=== PATIENT | female | born 1965 | race Caucasian/White ===

== ENCOUNTER → 2016-09-15 | Outpatient (CLI) | payer BC ==
[2016-09-15 19:25] LABS: ALT/SGPT 25 U/L (12-78); AST/SGOT 17 U/L (15-37); BLOOD UREA NITROGEN 13 mg/dl (7-18); BUN/CREATININE RATIO 13.2 (10-20); CALCIUM 8.6 mg/dl (8.5-10.1); CARBON DIOXIDE 28 mmol/L (21-32); CHLORIDE 107 mmol/L (98-107); GLUCOSE 120 mg/dl (70-99); SODIUM 143 mmol/L (136-145)
[2016-09-15 19:37] LABS: ALB/GLOB RATIO 0.9 (0.9-2); ALKALINE PHOSPHATASE 75 U/L (45-117)
[2016-09-16 06:38] LABS: ESTIMATED AVERAGE GLUCOSE 123 mg/dl; HA1C FLAG Normal (Normal)
--- NOTE | 2016-09-19 11:39 | CODING QUERY MEDICAL NECESSITY ---
SUPPORTING DIAGNOSIS NEEDED Dr. Rain, A supporting diagnosis is required for the test/procedure performed on this patient in order for us to be reimbursed by the patient's insurance. Please provide a supporting diagnosis for the following test/procedure listed below next to the test name along with your signature. *If there is no additional diagnosis for this patient that would support the following test/procedure please document that below next to the test/procedure. Test(s)/Procedure(s) that require a supporting diagnosis: * ([id number]) VITAMIN D ASSAY DIAGNOSIS: * [id number] GLYCATED HEMOGLOBIN DIAGNOSIS: DATE OF SERVICE: 09/15/16 Provider Signature: Date: Thank you Chandan Tay [facility] Information Management Once completed, please kindly fax back to [phone] For questions please call [phone]
== END | disposition home or self-care (01) ==
LOC: C.LABSPEC 15:48
PROVIDERS: ATTEND Family Medicine
DX: R42 Dizziness and giddiness (principal); N95.1 Menopausal and female climacteric states

== ENCOUNTER → 2017-04-20 | Outpatient (CLI) | payer BC ==
[2017-04-20 18:59] LABS: BASO % 1.1 %; BASO ABS # 0.08 K/uL (0-0.2); EOS % 1.5 %; EOS ABS # 0.11 K/uL (0-0.5); HEMATOCRIT 43.5 % (37-47); HEMOGLOBIN 14.5 g/dL (12.0-16.0); IG# 0.01 K/uL (0.00-0.02); LYMPH % 32.5 %; LYMPH ABS # 2.45 K/uL (1.2-3.4); MEAN CELL VOLUME 87.3 fL (80-100); MEAN CORPUSCULAR HEMOGLOBIN 29.1 pg (25-34); MEAN CORPUSCULAR HGB CONC 33.3 g/dl (32-36); MEAN PLATELET VOLUME 10.2 fL (7.4-10.4); MONO % 9.5 %; MONO ABS # 0.72 K/uL (0.11-0.59); NEUT % 55.3 %; NEUT ABS # 4.17 K/uL (1.4-6.5); PLATELET COUNT 352 K/uL (130-400); RED CELL DISTRIBUTION WIDTH CV 14.2 % (11.5-14.5); RED CELL DISTRIBUTION WIDTH SD 45.3 fL (36.4-46.3); WHITE BLOOD COUNT 7.54 K/uL (4.8-10.8)
[2017-04-20 19:07] LABS: ALBUMIN 3.6 gm/dl (3.4-5.0); ALT/SGPT 23 U/L (12-78); AST/SGOT 13 U/L (15-37); BLOOD UREA NITROGEN 16 mg/dl (7-18); CALCIUM 8.7 mg/dl (8.5-10.1); CARBON DIOXIDE 25 mmol/L (21-32); CREATININE 0.86 mg/dl (0.60-1.20); GLUCOSE 84 mg/dl (70-99); POTASSIUM 4.3 mmol/L (3.5-5.1); SODIUM 137 mmol/L (136-145)
[2017-04-20 19:09] LABS: ALKALINE PHOSPHATASE 67 U/L (45-117); CHOLESTEROL 133 mg/dl (0-200); LDL CHOLESTEROL CALCULATED 60 mg/dl; TOTAL PROTEIN 7.4 gm/dl (6.4-8.2)
== END | disposition home or self-care (01) ==
LOC: C.LABSPEC 18:22
PROVIDERS: ATTEND Family Medicine
DX: K21.9 Gastro-esophageal reflux disease without esophagitis (principal); F41.1 Generalized anxiety disorder; Z68.42 Body mass index [BMI] 45.0-49.9, adult

== ENCOUNTER 2021-10-01 07:54 | Inpatient (IN) ==
--- NOTE | 2021-09-11 16:08 | PAT Medication Instructions ---
Medication Instructions Date of Service September 11, 2021 Home Medications ascorbic acid (vitamin C) 1,000 mg tablet (Vitamin C) 2 g PO QAM aspirin 81 mg tablet 81 mg PO QAM bupropion HCl 100 mg tablet,12 hr sustained-release (Wellbutrin SR) 100 mg PO BID cholecalciferol (vitamin D3) 25 mcg (1,000 unit) capsule (Vitamin D3) 50 mcg PO QAM escitalopram oxalate 10 mg tablet (Lexapro) 10 mg PO QAM esomeprazole magnesium 40 mg capsule,delayed release (Nexium) 40 mg PO QAM famotidine 20 mg tablet 20 mg PO BID lorazepam 1 mg tablet (Ativan) 1 mg PO TID PRN meloxicam 15 mg tablet 15 mg PO QAM ASK your surgeon for instructions meloxicam 15 mg tablet 15 mg PO QAM ASK your prescriber and surgeon aspirin 81 mg tablet 81 mg PO QAM DO NOT take the morning of surgery ascorbic acid (vitamin C) 1,000 mg tablet (Vitamin C) 2 g PO QAM cholecalciferol (vitamin D3) 25 mcg (1,000 unit) capsule (Vitamin D3) 50 mcg PO QAM Take morning of surgery With a small sip of water, OTHERWISE NOTHING TO EAT OR DRINK AFTER MIDNIGHT: bupropion HCl 100 mg tablet,12 hr sustained-release (Wellbutrin SR) 100 mg PO BID escitalopram oxalate 10 mg tablet (Lexapro) 10 mg PO QAM esomeprazole magnesium 40 mg capsule,delayed release (Nexium) 40 mg PO QAM famotidine 20 mg tablet 20 mg PO BID lorazepam 1 mg tablet (Ativan) 1 mg PO TID PRN (if needed) Take evening before surgery bupropion HCl 100 mg tablet,12 hr sustained-release (Wellbutrin SR) 100 mg PO BID famotidine 20 mg tablet 20 mg PO BID lorazepam 1 mg tablet (Ativan) 1 mg PO TID PRN (if needed) Other Notes If you have any questions please call us at [phone] or [phone] or [phone] or [phone]
--- NOTE | 2021-09-17 13:34 | Anesthesiology Consultation ---
Date of Service September 17, 2021 Assessment & Plan (1) Encounter for pre-operative examination: - COVID screening: Per assessment on 09/17: No known COVID-19 positive contacts or current COVID-19 related symptoms. Travel screen negative. Surgeon arranging preop COVID testing. Awaiting results. - Cardiology office visit (08/16/20): "Stable cardiac symptoms. Chest pain has resolved.. Chest pain does not seem to be cardiac related.. Patient can follow- up on an as needed basis" Chart Review Chart Review: Acceptable Risk for Surgery and Patient seen in Pre Admission Testing Teaching & Discussion Pre-Anesthesia Teaching/Discussion Notes: Instructed NPO after midnight before surgery,except medications with 15 cc of water. Medication instructions provided according to the PAT guidelines. History Surgery Operation Date: 10/01/21 11:05 Proposed Procedures p L4-L5 Decompression and Fusion, Spinal Cord Monitoring - Omega Scott DO Height/Weight Height: 5 ft 9 in Weight: 125.3 kg Allergies Allergy/AdvReac Type Severity Reaction Status Date / Time azithromycin Allergy Difficulty Verified 05/15/21 13:47 [From Zithromax Z-Memo] Breathing latex Allergy Rash Verified 05/15/21 14:10 amoxicillin AdvReac Leg Verified 05/22/21 14:43 swelling ibuprofen AdvReac Headaches Verified 05/22/21 14:43 Medications Home Medications Medication Instructions Recorded Confirmed Last Taken ascorbic acid (vitamin C) 1,000 mg 2 g PO QAM 05/15/21 09/05/21 Unknown tablet (Vitamin C) aspirin 81 mg tablet 81 mg PO QAM 05/15/21 09/05/21 Unknown bupropion HCl 100 mg tablet,12 hr 100 mg PO BID 05/15/21 09/05/21 Unknown sustained-release (Wellbutrin SR) cholecalciferol (vitamin D3) 25 50 mcg PO QAM 05/15/21 09/05/21 Unknown mcg (1,000 unit) capsule (Vitamin D3) escitalopram oxalate 10 mg tablet 10 mg PO QAM 05/15/21 09/05/21 Unknown (Lexapro) esomeprazole magnesium 40 mg 40 mg PO QAM 05/15/21 09/05/21 Unknown capsule,delayed release (Nexium) famotidine 20 mg tablet 20 mg PO BID 05/15/21 09/05/21 Unknown lorazepam 1 mg tablet (Ativan) 1 mg PO TID PRN 05/15/21 09/05/21 Unknown meloxicam 15 mg tablet 15 mg PO QAM 05/15/21 09/05/21 Unknown Past Medical History Medical History Anxiety and depression CAD (coronary artery disease) Non-obstructive per 2019 cardiac cath COPD (chronic obstructive pulmonary disease) stable DDD (degenerative disc disease) DVT (deep venous thrombosis) 2010, unknown etiology, on baby ASA GERD (gastroesophageal reflux disease) History of COVID-19 Covid positive 02/2021 > symptoms at time: cough, SOB, loss of smell, congestion, runny nose, fever, body aches, chills (was on O2 x1 week) > resolved History of TIA (transient ischemic attack) 2010 - no residual issues IBS (irritable bowel syndrome) Obesity Osteoarthritis TMJ (temporomandibular joint disorder) Mouth guard HS Exercise / Class Metabolic Activity II 4-5 Yardwork/Stairs/Walk up hill (one FS (no CP, no SOB)) Past Family History Family History Other No family history of adverse response to anesthesia Past Surgical History Surgical History History of cardiac catheterization 2018 (2/2 failed stress test, done at [facility]) > no stents History of cholecystectomy History of colonoscopy History of esophagogastroduodenoscopy (EGD) History of tonsillectomy History of tubal ligation Past Anesthesia History No Hx of Anesthesia Complications and No Family Hx of Anesthesia Complications History of PONV No Hx of PONV and No Hx of Motion Sickness Social History Smoking Status: Former smoker tobacco type: cigarettes Do You Dip or Chew Tobacco: No Smoking End Date: 2000 Hx Alcohol Use: No Hx Substance Use: Yes (MEDICAL MARIJUANA- USES DAILY-INGESTIBLES AND TINCTURE) substance use type: marijuana (Medical marijuana (tincture, occasional ingestion, cream)) Review of Systems Patient denies chest pain, shortness of breath, dyspnea on exertion, fever, chills, cough, wheezing, palpitations. Physical Exam Vital Signs VITALS BP 122/76 P 61 TEMP 98.7 SP02 95%RA RESP 18 PHYSICAL Full cervical extension range of motion. Full TMJ range of motion. TMD 3 finger breaths Mallampati Score 3 Dentition: several missing molars Lungs: clear throughout to auscultation Cardiac: regular rate and rhythm, no murmurs noted Spine: normal Carotid arteries: negative bruit Extremities: no edema Lab Results Anesthesia Preop Results Results Anesthesia Widget: WBC 6.80 K/ul (4.8-10.8) 09/17/21 Hgb 12.9 g/dl (12.0-16.0) 09/17/21 Hct 39.4 % (34.1-44.9) 09/17/21 Plt 299 K/uL (130-400) 09/17/21 Na 142 mmol/L (136-145) 09/17/21 K 4.6 mmol/L (3.5-5.1) 09/17/21 Cl 108 mmol/L (98-107) H 09/17/21 CO2 30 mmol/L (21-32) 09/17/21 BUN 19 mg/dl (6-23) 09/17/21 Creat 0.99 mg/dl (0.6-1.2) 09/17/21 Glucose Level 89 mg/dl (70-99(Fasting)) 09/17/21 PT 10.2 Seconds (9.0-12.0) 09/17/21 PTT 27.7 Seconds (21.0-31.0) 09/17/21 INR 1.0 (0.9-1.1) 09/17/21 Urine Color Yellow 09/17/21 Urine Appearance Clear (Clear) 09/17/21 Urine pH 7.0 (4.5-7.5) 09/17/21 Urine Specific [place] 1.011 (1.000-1.030) 09/17/21 Urine Protein Negative (Negative) 09/17/21 Urine Glucose (UA) Negative (Negative) 09/17/21 Urine Ketones Negative (Negative) 09/17/21 Urine Blood Negative (Negative) 09/17/21 Urine Nitrite Negative (Negative) 09/17/21 Urine Bilirubin Negative (Negative) 09/17/21 Urine Urobilinogen Negative (Negative) 09/17/21 Urine Leukocyte Esterase Negative (Negative) 09/17/21 Blood Type O Positive 09/17/21 Antibody Screen NEGATIVE 09/17/21 Testing Electrocardiogram Date: 03/07/21 Normal sinus rhythm at 76 bpm. LAFB. Possible anterior infarct, age undetermined.Compared to 08/06/20, NS TWA now evident in lateral leads per psych assistant review. Chest X-Ray Date: 05/23/21 Findings: + NAD Echocardiogram Date: 05/23/21 LVEF 61%. No significant valvular disease. Stress Test Date: 04/21/18 Type:exercise Stress EKG negative for ischemia. Stress echo positive for inducible ischemia. There is a small size apical myocardial wall motion abnormality with hypokinesis in the segments. LVEF 64%. Mildly increased concentric LV wall thickness. No significant valvular disease. 85% MPHR. 6 METS. Patient subsequently had cardiac cath 04/22/2018 with non-obstructive CAD. Cardiac Catheterization Date: 04/22/18 "No severe flow-limiting coronary artery stenosis... Left ventricular ejection fraction of 40%."per cardiology office visit records. Attempts to obtain official report unsuccessful.
[~2021-10-01 07:54] MED LIST: ACETAMINOPHEN 500 MG TAB PO SCH; CLINDAMYCIN/D5W 600 MG/54 ML BAG IV SCH; CeleBREX 200 MG CAP PO SCH; GABAPENTIN 600 MG DOSE PO SCH; LR 15ML/HR IV SCH
[2021-10-01] MEDS ORDERED: ePHEDrine sulfate 50 MG/ML AMP IV PRN (09:02)
[2021-10-01] MEDS ORDERED: fentaNYL citrate 100 MCG/2 ML VIAL IV PRN (09:02)
[2021-10-01] MEDS ORDERED: HYDROmorphone INJ 1 MG/ML SYRINGE IV PRN ×2 (09:02→13:53)
[2021-10-01] MEDS ORDERED: ATROPINE SULFATE 0.1 MG/ML 10ML SYR IV PRN (09:02)
[2021-10-01] MEDS ORDERED: ONDANSETRON INJ 2 MG/ML 2 ML VIAL IV PRN ×2 (09:02→13:53)
--- NOTE | 2021-10-01 09:39 | History & Physical Bridge Note ---
Date of Service October 01, 2021 History & Physical Bridge Note I have examined the patient, reviewed the History & Physical and in the interval since the performance of the History & Physical I have noted the following changes of clinical significance: no changes noted
--- NOTE | 2021-10-01 09:41 | History & Physical Report ---
Date of Service October 01, 2021 Assessment & Plan (1) Neurogenic claudication due to lumbar spinal stenosis: Plan: L4-L5 decompression and fusion History of Present Illness Chief Complaint: Back and bilateral leg pain Primary Care Provider: Rubén Rain DO This is a 56-year-old female presents with chronic persistent back and leg pain. Failing course of nonoperative care she is here for surgical invention. Allergies Allergy/AdvReac Type Severity Reaction Status Date / Time azithromycin Allergy Difficulty Verified 10/01/21 08:26 [From Zithromax Z-Memo] Breathing latex Allergy Rash Verified 10/01/21 08:26 amoxicillin AdvReac Leg Verified 10/01/21 08:26 swelling ibuprofen AdvReac Headaches Verified 10/01/21 08:26 Home Medications Medication Instructions Recorded Confirmed Type ascorbic acid (vitamin C) 1,000 mg 2 g PO QAM 05/15/21 10/01/21 History tablet (Vitamin C) aspirin 81 mg tablet 81 mg PO QAM 05/15/21 10/01/21 History bupropion HCl 100 mg tablet,12 hr 100 mg PO BID 05/15/21 10/01/21 History sustained-release (Wellbutrin SR) cholecalciferol (vitamin D3) 25 50 mcg PO QAM 05/15/21 10/01/21 History mcg (1,000 unit) capsule (Vitamin D3) escitalopram oxalate 10 mg tablet 10 mg PO QAM 05/15/21 10/01/21 History (Lexapro) esomeprazole magnesium 40 mg 40 mg PO QAM 05/15/21 10/01/21 History capsule,delayed release (Nexium) famotidine 20 mg tablet 20 mg PO BID 05/15/21 10/01/21 History lorazepam 1 mg tablet (Ativan) 1 mg PO TID PRN Anxiety 05/15/21 10/01/21 History meloxicam 15 mg tablet 15 mg PO QAM 05/15/21 10/01/21 History Past Med/Surg History Medical History Anxiety and depression CAD (coronary artery disease) Non-obstructive per 2019 cardiac cath COPD (chronic obstructive pulmonary disease) stable DDD (degenerative disc disease) DVT (deep venous thrombosis) 2010, unknown etiology, on baby ASA GERD (gastroesophageal reflux disease) History of COVID-19 Covid positive 02/2021 > symptoms at time: cough, SOB, loss of smell, congestion, runny nose, fever, body aches, chills (was on O2 x1 week) > resolved History of TIA (transient ischemic attack) 2010 - no residual issues IBS (irritable bowel syndrome) Obesity Osteoarthritis TMJ (temporomandibular joint disorder) Mouth guard HS Surgical History History of cardiac catheterization 2018 (2/2 failed stress test, done at [facility]) > no stents History of cholecystectomy History of colonoscopy History of esophagogastroduodenoscopy (EGD) History of tonsillectomy History of tubal ligation Family History Other No family history of adverse response to anesthesia Social History Smoking Status: Former smoker Smoking End Date: 2000; Second Hand Exposure: No; Do You Dip or Chew Tobacco: No; Tobacco Cessation Education Requested by Patient: No Hx Alcohol Use: No Hx Substance Use: No Preferred Language: Belarusian Communication Ability: Effective Assistant Hvac Mechanic Required: No Beliefs That Will Affect Care: None Current Living Situation: Alone Feels Safe at Home: Yes Safety Concerns: Feels Safe At This Time Assistive Devices: Glasses Physical Exam Physical Exam: Patient is alert and oriented Heart regular rhythm Lungs clear Results & Data Results & Data ([facility]) Vital Signs (Past 12 Hours) Vital Signs Temp Pulse Resp BP Pulse Ox O2 Del Method 10/01/21 08:30 36.5 C 60 20 142/97 H 95 Room Air
[2021-10-01] MEDS ORDERED: ceFAZolin 330 MG/ML 1 GM VIAL ONE (09:52)
[2021-10-01] MEDS ORDERED: LIDOCAINE 2% MPF LOCAL 5 ML VIAL INFIL ONE (09:58)
[2021-10-01] MEDS ORDERED: ROCURONIUM BROMIDE 10 MG/ML 5 ML VIAL IV ONE (09:58)
[2021-10-01] MEDS ORDERED: PROPOFOL IV EMULSION 10 MG/ML 20 ML VIAL IV ONE (09:58)
[2021-10-01] MEDS ORDERED: fentaNYL citrate 100 MCG/2 ML VIAL ONE (10:00)
[2021-10-01] MEDS ORDERED: MIDAZOLAM HCL 1 MG/ML 2ML VIAL ONE (10:00)
[2021-10-01] MEDS ORDERED: BUPIVACAINE/EPINEPHRINE 0.25% 1:200,000 30 ML VIAL ONE (10:06)
[2021-10-01] MEDS ORDERED: KETAMINE 50 MG/5 ML SYRINGE ONE (10:26)
[2021-10-01] MEDS ORDERED: GLYCOPYRROLATE 0.2 MG/ML VIAL ONE (10:26)
[2021-10-01] MEDS ORDERED: HYDROmorphone INJ 2 MG/ML SYR/VIAL ONE (10:47)
[2021-10-01] MEDS ORDERED: DEXAMETHASONE SOD INJ 4 MG/ML VIAL ONE ×2 (10:49)
[2021-10-01] MEDS ORDERED: ONDANSETRON INJ 2 MG/ML 2 ML VIAL ONE (10:50)
[2021-10-01] MEDS ORDERED: FLOSEAL HEMOSTATIC MATRIX 10ML TOP ONE (12:00)
--- NOTE | 2021-10-01 12:10 | Operative Report ---
Post Operative Report Pre & Post Diagnosis Operation Date: 10/01/21 09:35 Pre-Op Diagnosis: Spinal Stenosis, Lumbar Region with Neurogenic Claudication Post-Op Diagnosis: Spinal Stenosis, Lumbar Region with Neurogenic Claudication I identified the patient and participated in the time-out.: Yes Procedure Operation Date: 10/01/21 09:35 Actual Procedures #1 lumbar decompression bilateral medial facetectomies and foraminotomies L3-L4 L4-5. #2 posterior spinal fusion L4-5 #3 placement posterior instrumentation L4-5 per #4 interbody fusion L4-5. #5 placement of Spira 15 x 26 mm cage at L4- 5. #6 placement locally harvested morselized autograft in the posterior gutters. #7 placement I factor V toss in the interbody space and posterior gutters. Surgeon Omega Scott, DO [employer] Charlee De Leon Estimated Blood Loss 200 Findings See Below Patient is 5 foot 9 weighing 124 kg with a BMI in excess of 40. Patient's body habitus did contribute to significant technical difficulty required deeper retractors longer instruments in order to perform her procedure. This had at least 50% increased operative time. Specimens None Indications This is a 56-year-old female who presents with above-mentioned diagnosis after failing course of nonoperative care is here for surgical invention. Description of Procedure Patient was met with identified informed consent obtained. Patient was then taken to the operative suite underwent ablation placed in the prone position the [place] table top Jacob frame. All bony prominences well-padded eyes inspected to ensure no external pressure placed upon the. This point the thoracolumbar spine was prepped and draped no sterile fashion. Sharp dissection with the assistance of Bovie cautery was performed down to and exposing the lamina and transverse processes of L4-L5. From caudal to cephalad fashion complete santamaria inectomy of L4 partial laminectomy of L3 was performed including bilateral medial facetectomies and foraminotomies addressing severe spinal stenosis. Pedicle screws then placed at L4 and L5 bilaterally with assistance of fluoroscopy the properly sized vikki placed. By way the transforaminal approach on the right a complete discectomy of L4-L5 was performed endplates curetted to subcortical bleeding bone and a 15 x 26 mm Spira cage filled I factor tapped in position. The rods then compressed locked into final position bilaterally. The transverse processes of L4-L5 burred to subcortical bleeding bone. I factor bone of the test and locally harvested morselized autograft was then placed in the posterior gutters. 15 round SALOMON drain inserted. The incision was then closed with 1 Vicryl the fascia 2-0 Vicryl subcutaneously and 4 Monocryl for final skin closure. Steri-Strip sterile dressings placed. Patient waken taken PACU stable condition. Please note spinal cord monitoring was utilized at the procedure no changes noted. Lastly Charlee De Leon was present at the entire surgery and while the patient positioning complex portions of the surgery and fascial closure. I attest to the content of the Intraoperative Record and any orders documented therein. Any exceptions are noted below.
--- NOTE | 2021-10-01 12:17 | Fluoroscopy Report ---
FL lumbar spine 2-3V CLINICAL HISTORY: L4-5 decompression and fusion COMPARISON STUDY: None. FLUOROSCOPY TIME: 24 seconds. FINDINGS: 2 fluoroscopic spot images of the lumbar spine demonstrate posterior decompression and fusi on at L4-5 with pedicle screws and rods. A disc spacer is in place. IMPRESSION: Fluoroscopic assistance provided for L4-5 posterior decompression and fusion ACT 112: Negative or not required by law. Electronically signed by: Jason Morales M.D. 10/01/2021 12:16 PM
--- NOTE | 2021-10-01 13:16 | Anesthesiology Progress Note ---
Date of Service October 01, 2021 Anesthesia Post Procedure Vital Signs Vital Signs: Temp Pulse Pulse Resp BP BP Pulse Ox 10/01/21 12:45 67 15 142/79 H 93 10/01/21 13:05 57 L 11 L 133/72 91 10/01/21 12:55 61 9 L 128/81 98 10/01/21 12:35 80 12 139/67 98 10/01/21 12:29 98.2 F 81 9 L 141/74 H 99 10/01/21 08:30 97.7 F 60 20 142/97 H 95 O2 Del Method O2 Flow Rate 10/01/21 12:45 Oxymask 5 10/01/21 13:05 Nasal Cannula 4 10/01/21 12:55 Nasal Cannula 4 10/01/21 12:35 Oxymask 5 10/01/21 12:29 Oxymask 7 10/01/21 08:30 Room Air Pain Intensity Lower Back: Pain Intensity: 4 Transfer of Care Handoff Completed per policy Notes Mental Status: alert / awake / arousable and participated in evaluation Patient Amnestic to Procedure: Yes Nausea / Vomiting: adequately controlled Pain: adequately controlled Airway Patency, RR, SpO2: stable & adequate BP & HR: stable & adequate Hydration State: stable & adequate Anesthetic Complications: no major complications apparent and Pt Satisfied with anesthetic care
[2021-10-01] MEDS ORDERED: FAMOTIDINE 20 MG TAB PO PRN (13:53)
[2021-10-01] MEDS ORDERED: SOD PHOSPHATE/SOD BIPHOSPHATE ENEMA 132 ML BTL PR PRN (13:53)
[2021-10-01] MEDS ORDERED: LORazepam 0.5 MG TAB PO PRN (13:53)
[2021-10-01] MEDS ORDERED: METOCLOPRAMIDE HCL INJ 5 MG/ML 2 ML VIAL IV PRN (13:53)
[2021-10-01] MEDS ORDERED: bisacodyL 10 MG SUPP PR PRN (13:53)
[2021-10-01] MEDS ORDERED: diphenhydrAMINE Capsule 25 MG CAP PO PRN (13:53)
[2021-10-01] MEDS ORDERED: PROMETHAZINE HCL 12.5 MG in SODIUM CHLORIDE 0.9% 50 ML IV PRN (13:53)
[2021-10-01] MEDS ORDERED: MAGNESIUM HYDROXIDE SUSP 30 ML UDC PO PRN (13:53)
[2021-10-01] MEDS ORDERED: ACETAMINOPHEN 500 MG TAB PO PRN (13:53)
[2021-10-01] MEDS ORDERED: ONDANSETRON 4 MG OD TAB PO PRN (13:53)
[2021-10-01] MEDS ORDERED: DO NOT ADMINISTER FLU VACCINE PRN (13:53)
[2021-10-01] MEDS ORDERED: DO NOT ADMINISTER PNEUMOCOCCAL VACCINE PRN (13:53)
[2021-10-01] MEDS ORDERED: ACETAMINOPHEN 1,000 MG/100 ML VIAL IV PRN (13:53)
[2021-10-01] MEDS ORDERED: ALUMINUM/MAGNESIUM SUSP 30 ML UDC PO PRN (13:53)
[2021-10-01] MEDS ORDERED: traMADol HCL 50 MG TABLET PO PRN (13:53)
[2021-10-01] MEDS ORDERED: LORazepam 0.5 MG in SYRINGE 0.25 ML IV PRN (13:53)
[2021-10-01] MEDS ORDERED: NALOXONE HCL 0.4 MG/1 ML VIAL/CARP IV PRN (13:53)
[2021-10-01] MEDS ORDERED: HYDROmorphone INJ 0.5 MG/0.5 ML SYR IV PRN (13:53)
[2021-10-01] MEDS ORDERED: hydrOXYzine HCl 25 MG TAB PO PRN (13:53)
[2021-10-01] MEDS: LACTATED RINGER'S 1,000 ML IV SCH (14:44)
--- NOTE | 2021-10-01 14:55 | Consultation ---
Date of Consultation October 01, 2021 Assessment & Plan (1) Neurogenic claudication due to lumbar spinal stenosis: -Dr. Scott patient. -POD #0 for lumbar decompression L3-L4; L4-L5. -EBL: 200mL -Lumbar SALOMON drain intact; additional 50mL noted in bulb. -SCDs and thigh high teds on. -Pre-Op Hgb 12.9 from 09/17/21. Check AM CBC without diff and BMP -LR at 150mL/hour infusing; will reevaluate diet advancement prior to discontinuation. -PT/OT ordered. -Encourage ISB use post-op -Ortho to manage post-surgery, incision management, and pain management. -Pt has Dilaudid, Tramadol, and Ativan ordered PRN. -Pt does have medicinal marijuana tincture for pain and anxiety through the [facility]. Advised of current policy for use; however, advised that I would suggest she discuss with her surgeon regarding when appropriate to reintiate use. (2) CAD (coronary artery disease): -Heart cath in 2019, secondary to failed stress test, done at [facility]; no intervention necessary. -Not on any cardiac meds -Former smoker - Stopped smoking 2010. (3) COPD (chronic obstructive pulmonary disease): -Encourage ISB use post-op -On 2LNC post operative (4) Anxiety and depression: -Pt takes Lexapro, Ativan, Wellbutrin. Continue while inpt. Plan Ms. Peraza is a 56 year old female who presented to the hospital for a scheduled surgery with Dr. Scott for lumbar decompression after failed outpatient conservative treatment for spinal stenosis and lumbar neuroclaudication and spinal fusion of L4-5. Today she underwent a lumbar decompression of L3-4 and L4-5. Disposition: -Goal to return home post discharge -PCP: Dr. Rain -Code Status: Full code Supervising Physician Co-Signing Physician Notes Attending addendum: The patient was seen and examined in medical floor She is a status post L4-L5 decompression and fusion Complains minimal pain at the lower back but denies any numbness and or tingling in the extremities especially the legs Denies any chest pain, palpitation or shortness of breath. No abdominal pain nausea no vomiting On examination Lying in bed comfortably Hemodynamically stable The drainage is still draining some blood Chest-clear to auscultate bilaterally Heart-S1-S2, regular no murmur Abdomen-benign Extremities-negative for any edema Her preop labs and imaging studies reviewed Status post L4-L5 decompression and fusion remains stable Her other medical condition is stable Will monitor lab works Medically stable Agree with assessment plan as outlined above by Jessica Collier History of Present Illness Requesting Physician: Dr. Scott Reason for Consultation: Medical Management Attending Physician: Omega Scott, DO History of Present Illness Ms. Peraza is a 56 year old female who presented to the hospital for a scheduled surgery with Dr. Scott for lumbar decompression after failed outpatient conservative treatment for spinal stenosis and lumbar neuroclaudication and spinal fusion of L4-5. Today she underwent a lumbar decompression of L3-4 and L4-5. EBL intraoperatively is 200mL. Additional PMH includes: CAD, COPD, Degenerative disc disease, DVT (2010 with unknown etiology), GERD, TIA, IBS, OA, and TMJ. Hospitalist team was consulted for continued medical management. Please see A/P for further details. Allergies Allergy/AdvReac Type Severity Reaction Status Date / Time azithromycin Allergy Difficulty Verified 10/01/21 08:26 [From Zithromax Z-Memo] Breathing latex Allergy Rash Verified 10/01/21 08:26 amoxicillin AdvReac Leg Verified 10/01/21 08:26 swelling ibuprofen AdvReac Headaches Verified 10/01/21 08:26 Home Medications Medication Instructions Recorded Confirmed Type ascorbic acid (vitamin C) 1,000 mg 2 g PO QAM 05/15/21 10/01/21 History tablet (Vitamin C) aspirin 81 mg tablet 81 mg PO QAM 05/15/21 10/01/21 History bupropion HCl 100 mg tablet,12 hr 100 mg PO BID 05/15/21 10/01/21 History sustained-release (Wellbutrin SR) cholecalciferol (vitamin D3) 25 50 mcg PO QAM 05/15/21 10/01/21 History mcg (1,000 unit) capsule (Vitamin D3) escitalopram oxalate 10 mg tablet 10 mg PO QAM 05/15/21 10/01/21 History (Lexapro) esomeprazole magnesium 40 mg 40 mg PO QAM 05/15/21 10/01/21 History capsule,delayed release (Nexium) famotidine 20 mg tablet 20 mg PO BID 05/15/21 10/01/21 History lorazepam 1 mg tablet (Ativan) 1 mg PO TID PRN Anxiety 05/15/21 10/01/21 History meloxicam 15 mg tablet 15 mg PO QAM 05/15/21 10/01/21 History Patient History Medical History (Updated 10/01/21 @ 15:59 by SANDIP Shannon) Anxiety and depression Anxiety and depression CAD (coronary artery disease) Non-obstructive per 2019 cardiac cath CAD (coronary artery disease) COPD (chronic obstructive pulmonary disease) stable COPD (chronic obstructive pulmonary disease) DDD (degenerative disc disease) DVT (deep venous thrombosis) 2010, unknown etiology, on baby ASA GERD (gastroesophageal reflux disease) History of COVID-19 Covid positive 02/2021 > symptoms at time: cough, SOB, loss of smell, congestion, runny nose, fever, body aches, chills (was on O2 x1 week) > resolved History of TIA (transient ischemic attack) 2010 - no residual issues IBS (irritable bowel syndrome) Obesity Osteoarthritis TMJ (temporomandibular joint disorder) Mouth guard HS Surgical History History of cardiac catheterization 2018 (2/2 failed stress test, done at [facility]) > no stents History of cholecystectomy History of colonoscopy History of esophagogastroduodenoscopy (EGD) History of tonsillectomy History of tubal ligation Family History Other No family history of adverse response to anesthesia Social History Smoking Status: Former smoker Smoking End Date: 2000; Second Hand Exposure: No; Do You Dip or Chew Tobacco: No; Tobacco Cessation Education Requested by Patient: No Hx Alcohol Use: No Hx Substance Use: No Preferred Language: Tristanian Communication Ability: Effective Pressure Vessel Inspector Required: No Beliefs That Will Affect Care: None Current Living Situation: Alone Feels Safe at Home: Yes Safety Concerns: Feels Safe At This Time Assistive Devices: Glasses Review of Systems Review of Systems: Neuro: (-) Falls, trauma, slurred speech HEENT: (-) PERDOMO, dizziness, dysphagia, visual or auditory changes CV: (-) CP, palpitations, swelling Resp: (-) SOB GI: (-) appetite changes, N/V/D, bowel changes : (-) urinary changes Skin: (-) rashes Psych: (-) anxiety, depression Physical Exam Physical Exam: Neuro: AAOx4, PERRLA, no aphagia, memory changes, CNII-XII grossly intact HEENT: head normocephalic, moist mucus membranes CV: S1/S2, (-) M/G/R, (-) edema, cap refill < 3 seconds. lumbar SALOMON drain present with bright red blood output. Resp: Lunugs CTA in all stevens. On RA GI: Abdomen S/NT/ND, Ax4 bowel sounds, (-) CVA tenderness Musculoskeletal: 5/5 B/L UE strength, 5/5 B/L LE strength. No gait disturbance Skin: Surgical dressing in place vertically, lumbar region and C/D/I. (-) rashes , (-) erythema. Psych: euthymic mood Results & Data ([facility]) Vital Signs (Past 12 Hours) Vital Signs Temp Pulse Pulse Resp BP BP Pulse Ox 10/01/21 14:23 56 L 16 113/74 91 10/01/21 14:17 10/01/21 13:53 36.6 C 74 14 119/70 96 10/01/21 12:45 67 15 142/79 H 93 10/01/21 13:35 59 L 9 L 112/62 98 10/01/21 13:25 36.5 C 71 18 128/55 L 94 10/01/21 13:15 36.8 C 70 14 128/55 L 99 10/01/21 13:05 57 L 11 L 133/72 91 10/01/21 12:55 61 9 L 128/81 98 10/01/21 12:35 80 12 139/67 98 10/01/21 12:29 36.8 C 81 9 L 141/74 H 99 10/01/21 08:30 36.5 C 60 20 142/97 H 95 O2 Del Method O2 Flow Rate 10/01/21 14:23 Nasal Cannula 2 10/01/21 14:17 Nasal Cannula 2 10/01/21 13:53 Nasal Cannula 2 10/01/21 12:45 Oxymask 5 10/01/21 13:35 Nasal Cannula 2 10/01/21 13:25 Nasal Cannula 2 10/01/21 13:15 Nasal Cannula 4 10/01/21 13:05 Nasal Cannula 4 10/01/21 12:55 Nasal Cannula 4 10/01/21 12:35 Oxymask 5 10/01/21 12:29 Oxymask 7 10/01/21 08:30 Room Air Diagnostic Findings Laboratory Results SARS-CoV-2, RNA, NAAT NEGATIVE (NEGATIVE) 10/01/21 08:15 Impressions Lumbar Spine X-Ray 10/01/21 09:35 FL lumbar spine 2-3V CLINICAL HISTORY: L4-5 decompression and fusion COMPARISON STUDY: None. FLUOROSCOPY TIME: 24 seconds. FINDINGS: 2 fluoroscopic spot images of the lumbar spine demonstrate posterior decompression and fusion at L4-5 with pedicle screws and rods. A disc spacer is in place. IMPRESSION: Fluoroscopic assistance provided for L4-5 posterior decompression and fusion ACT 112: Negative or not required by law. Electronically signed by: Jason Morales M.D. 10/01/2021 12:16 PM
[2021-10-01] MEDS: oxyCODONE HCL IR 5 MG TAB (IMMEDIATE RELEASE) PO PRN ×2 (16:36→20:13)
[2021-10-01] MEDS: CLINDAMYCIN 600 MG in DEXTROSE 5% 50 ML IV SCH (17:34)
[2021-10-01] MEDS: FAMOTIDINE 20 MG TAB PO SCH (21:21)
[2021-10-01] MEDS: DOCUSATE SODIUM/SENNA 50/8.6MG TAB PO SCH (21:22)
[2021-10-01] MEDS: buPROPion SR 100 MG TABCR PO SCH (21:22)
[2021-10-02] MEDS: CLINDAMYCIN 600 MG in DEXTROSE 5% 50 ML IV SCH (01:36)
[2021-10-02] MEDS: oxyCODONE HCL IR 5 MG TAB (IMMEDIATE RELEASE) PO PRN ×3 (01:39→13:51)
[2021-10-02] MEDS: LACTATED RINGER'S 1,000 ML IV SCH ×2 (02:21→05:20)
[2021-10-02] MEDS: POLYETHYLENE (MIRALAX) 17 GM PACK PO SCH ×3 (05:31→17:55)
[2021-10-02 08:23] LABS: Basophils # (auto) 0.02 K/uL (0-0.2); Basophils % (auto) 0.2 %; Hematocrit (blood only) 34.5 % (34.1-44.9); Immature Granulocytes # (auto) 0.07 K/uL (0.00-0.02); Immature Granulocytes % (auto) 0.7 %; Lymphocytes # (auto) 1.19 K/uL (1.2-3.4); Lymphocytes % (auto) 11.2 %; Mean Corpuscular Hemoglobin 28.3 pg (25.0-34.0); Mean Corpuscular Hgb Conc 31.9 g/dL (32.0-36.0); Mean Corpuscular Volume 88.7 fL (80.0-100.0); Mean Platelet Volume 10.4 fL (9.4-12.3); Monocytes # (auto) 0.65 K/uL (0.24-0.82); Monocytes % (auto) 6.1 %; Neutrophils # (auto) 8.65 K/uL (1.4-6.5); Neutrophils % (auto) 81.8 %; Platelet Count 276 K/uL (130-400); RDW Standard Deviation 45.1 fL (36.4-46.3); Red Blood Count 3.89 M/uL (3.93-5.22); White Blood Count 10.58 K/ul (4.8-10.8)
[2021-10-02 08:48] LABS: Calcium 8.3 mg/dl (8.5-10.1); Creatinine Clr Calc Pharmacy 98.5 ml/min; Est GFR (African American) 82.3 ml/min; Potassium 4.1 mmol/L (3.5-5.1)
[2021-10-02] MEDS: dexAMETHasone 6 MG in SYRINGE 0 ML IV SCH (09:23)
[2021-10-02] MEDS: buPROPion SR 100 MG TABCR PO SCH ×2 (09:25→21:37)
[2021-10-02] MEDS: FAMOTIDINE 20 MG TAB PO SCH ×2 (09:26→21:37)
[2021-10-02] MEDS: ASPIRIN 81 MG ECTAB PO SCH (09:26)
[2021-10-02] MEDS: PANTOprazole 40 MG TAB PO SCH (09:27)
[2021-10-02] MEDS: CHOLECALCIFEROL 1,000 UNITS 25 MCG TAB PO SCH (09:27)
[2021-10-02] MEDS: ESCITALOPRAM OXALATE 10 MG TAB PO SCH (09:27)
--- NOTE | 2021-10-02 09:51 | Orthopedic Progress Note ---
Date of Service October 02, 2021 Assessment & Plan (1) Neurogenic claudication due to lumbar spinal stenosis: Plan: At this time we will continue physical therapy monitor SALOMON operatively discharge home in the next few days. Admission and Anticipated Discharge Date Admission Date: October 01, 2021 Subjective Patient's back pain is controlled leg pain markedly improved Physical Exam Physical Exam: Patient is sitting up in the bedside. Appears comfortable. Discussed pain to testing. Results & Data ([facility]) Vital Signs (Past 12 Hours) Vital Signs Temp Pulse Resp BP Pulse Ox O2 Del Method 10/02/21 07:42 36.8 C 67 18 102/63 99 Room Air 10/02/21 04:21 36.8 C 55 L 17 103/65 98 Room Air 10/01/21 23:44 36.8 C 62 17 93/52 L 93 Room Air
--- NOTE | 2021-10-02 17:07 | Hospitalist Progress Note ---
Date of Service October 02, 2021 Assessment & Plan (1) Neurogenic claudication due to lumbar spinal stenosis: Plan: -Dr. Scott patient. -POD #1 for lumbar decompression L3-L4; L4-L5. -EBL: 200mL -Lumbar SALOMON drain intact No evidence of post operative anemia. -PT/OT ordered. -Encourage incentive spiroometer -Ortho to manage post-surgery, incision management, and pain management. -Pt has Dilaudid, Tramadol, and Ativan ordered PRN. -Pt does have medicinal marijuana tincture for pain and anxiety through the [facility]. Advised of current policy for use (2) CAD (coronary artery disease): Plan: -Heart cath in 2019, secondary to failed stress test, done at [facility]; no intervention necessary. -Not on any cardiac meds -Former smoker - Stopped smoking 2010. (3) COPD (chronic obstructive pulmonary disease): Plan: -Encourage ISB use post-op -On 2LNC post operative and able to be weaned off to room air. (4) Anxiety and depression: Plan: -Pt takes Lexapro, Ativan, Wellbutrin. Continue while inpt. Plan Pain control Monitor SALOMON drain Ambulate as tolerated Brinda Ash DO [facility] Hospitalist Admission and Anticipated Discharge Date Admission Date: October 01, 2021 Subjective Ms. Peraza is a 56 year old female who presented to the hospital for a scheduled surgery with Dr. Scott for lumbar decompression after failed outpatient conservative treatment for spinal stenosis and lumbar neuroclaudication and spinal fusion of L4-5. She underwent a lumbar decompression of L3-4 and L4-5 yesterday She is doing well post op She was just returning from ambulating in the room and had gotten somewhat flushed She is otherwise doing well and reports pain is well controlled denies any numbness for tingling in her legs No BM yet-using oxycodone and Miralax Review of Systems Review of Systems: All systems were reviewed and negative except as indicated above. Physical Exam Physical Exam: CONSTITUTIONAL: WNWD, vitals as above, generally well- appearing, NAD EYES: normal conjunctivae, no scleral icterus, ENT: external ear and nose normal, MMM NECK: trachea midline, RESPIRATORY: clear to auscultation bilaterally, no crackles, rales or wheezes, normal respiratory effort CARDIOVASCULAR: regular rate and rhythm, S1 and 2 heard without murmurs, gallops or rubs, no JVD, no peripheral edema CHEST: inspection of chest was normal GASTROINTESTINAL: soft, nontender, ND, no guarding MUSCULOSKELETAL: strength 5/5 throughout, head is normocephalic and atraumatic SKIN: warm and dry, slight flushing to malar area of face. Back incision covered with dressing that is c/d/i NEUROLOGIC: CN 2-12 grossly intact, no sensory deficit, normal cognition, normal speech, no tremor PSYCHIATRIC: alert cooperative and oriented to person, place and time. Results & Data Results & Data ([facility]) Vital Signs (Past 12 Hours) Vital Signs Temp Pulse Resp BP BP Pulse Ox O2 Del Method 10/02/21 15:00 36.8 C 60 16 109/56 L 96 Room Air 10/02/21 16:01 37 C 62 18 102/67 94 Room Air 10/02/21 11:41 37.0 C 62 18 105/53 L 95 Room Air 10/02/21 07:42 36.8 C 67 18 102/63 99 Room Air Laboratory Results Short CBC 10/02/21 Range/Units 07:35 WBC 10.58 (4.8-10.8) K/ul Hgb 11.0 L (12.0-16.0) g/dl Hct 34.5 (34.1-44.9) % Plt Count 276 (130-400) K/uL BMP 10/02/21 07:35 Sodium 140 Potassium 4.1 Chloride 105 Carbon Dioxide 30 BUN 20 Creatinine 0.91 Glucose 153 H Calcium 8.3 L Medications Administered Current Inpatient Medications Acetaminophen (Acetaminophen 500 Mg Tab) 1,000 mg PO Q8H PRN PRN Reason: MILD Pain Scale 1,2,3 & Pre PT Stop: 10/31/21 13:52 Al Hydrox/Mg Hydrox/Simethicone (Aluminum/Magnesium Susp 30 Ml Udc) 30 ml PO Q6H PRN PRN Reason: Dyspepsia Stop: 10/31/21 13:52 Aspirin (Aspirin 81 Mg Ectab) 81 mg PO QAM [facility] Stop: 11/01/21 08:59 Last Admin: 10/02/21 09:26 Dose: 81 mg Bisacodyl (Bisacodyl 10 Mg Supp) 10 mg ID DAILY PRN PRN Reason: Constipation Stop: 10/31/21 13:52 Bupropion HCl (Bupropion Sr 100 Mg Tabcr) 100 mg PO BID [facility] Stop: 10/31/21 20:59 Last Admin: 10/02/21 09:25 Dose: 100 mg Diphenhydramine HCl (Diphenhydramine Capsule 25 Mg Cap) 25 mg PO Q6H PRN PRN Reason: Allergic Rhinitis/Insomnia Stop: 10/31/21 13:52 Escitalopram Oxalate (Escitalopram Oxalate 10 Mg Tab) 10 mg PO QAM [facility] Stop: 11/01/21 08:59 Last Admin: 10/02/21 09:27 Dose: 10 mg Famotidine (Famotidine 20 Mg Tab) 20 mg PO BID [facility] Stop: 10/31/21 20:59 Last Admin: 10/02/21 09:26 Dose: 20 mg Hydromorphone HCl (Hydromorphone Inj 0.5 Mg/0.5 Ml Syr) 0.5 mg IV Q3H PRN PRN Reason: MODERATE Pain (Scale 4,5,6) & Pre PT Stop: 10/15/21 13:52 Hydromorphone HCl (Hydromorphone Inj 1 Mg/Ml Syringe) 1 mg IV Q3H PRN PRN Reason: SEVERE Pain (Scale 7,8,9,10) Stop: 10/15/21 13:52 Hydroxyzine HCl (Hydroxyzine Hcl 25 Mg Tab) 25 mg PO Q8H PRN PRN Reason: Anxiety Stop: 10/31/21 13:52 Promethazine HCl 12.5 mg/ (Sodium Chloride) 50.5 mls @ 202 mls/hr IV Q6H PRN PRN Reason: Nausea &/or Vomiting Stop: 10/31/21 13:52 Lorazepam 0.5 mg/ Syringe 0.5 mls @ 2 mls/min IV Q8H PRN PRN Reason: Sedation/Anxiety Stop: 10/31/21 13:52 Dexamethasone 6 mg/ Syringe 1.5 mls @ 1 mls/min IV DAILY [facility] Stop: 10/04/21 09:02 Last Admin: 10/02/21 09:23 Dose: 1 mls/min Influenza Virus Vaccine Quadrival (Do Not Administer Flu Vaccine) 1 each N/A PRN PRN PRN Reason: Notification Stop: 10/31/21 13:52 Lorazepam (Lorazepam 0.5 Mg Tab) 0.5 mg PO Q8H PRN PRN Reason: Sedation/Anxiety Stop: 10/31/21 13:52 Last Admin: 10/02/21 01:39 Dose: 0.5 mg Magnesium Hydroxide (Magnesium Hydroxide Susp 30 Ml Udc) 30 ml PO Q24H PRN PRN Reason: Constipation Stop: 10/31/21 13:52 Metoclopramide HCl (Metoclopramide Hcl Inj 5 Mg/Ml 2 Ml Vial) 10 mg IV Q6H PRN PRN Reason: Nausea &/or Vomiting Stop: 10/31/21 13:52 Naloxone HCl (Naloxone Hcl 0.4 Mg/1 Ml Vial/Carp) 0.1 mg IV Q5M PRN PRN Reason: Oversedation/Resp depression Stop: 10/31/21 13:52 Ondansetron HCl (Ondansetron Inj 2 Mg/Ml 2 Ml Vial) 4 mg IV Q6H PRN PRN Reason: Nausea &/or Vomiting Stop: 10/31/21 13:52 Ondansetron HCl (Ondansetron 4 Mg Od Tab) 4 mg PO Q6H PRN PRN Reason: Nausea Stop: 10/31/21 13:52 Oxycodone HCl (Oxycodone Hcl Ir 5 Mg Tab (Immediate Release)) 5 - 10 mg PO Q4H PRN PRN Reason: Pain & Pre PT Stop: 10/15/21 13:52 Last Admin: 10/02/21 13:51 Dose: 10 mg Pantoprazole Sodium (Pantoprazole 40 Mg Tab) 40 mg PO QAM [facility]; Protocol Stop: 11/01/21 08:59 Last Admin: 10/02/21 09:27 Dose: 40 mg Pneumococcal Polyvalent Vaccine (Do Not Administer Pneumococcal Vaccine) 1 each N/A PRN PRN PRN Reason: Notification Stop: 10/31/21 13:52 Polyethylene Glycol (Polyethylene (Miralax) 17 Gm Pack) 17 gm PO Q6 AKIKO Stop: 11/01/21 05:59 Last Admin: 10/02/21 12:17 Dose: 17 gm Senna/Docusate Sodium (Docusate Sodium/Senna 50/8.6mg Tab) 2 tab PO HS AKIKO Stop: 10/31/21 20:59 Last Admin: 10/01/21 21:22 Dose: 2 tab Sodium Biphosphate/Sodium Phosphate (Sod Phosphate/Sod Biphosphate Enema 132 Ml Btl) 132 ml ID ONE PRN PRN Reason: Constipation Stop: 10/31/21 13:52 Tramadol HCl (Tramadol Hcl 50 Mg Tablet) 50 - 100 mg PO Q4H PRN PRN Reason: Moderate-Severe pain & Pre PT Stop: 10/31/21 13:52 Vitamin D (Cholecalciferol 1,000 Units 25 Mcg Tab) 1,000 units PO [facility] Stop: 11/01/21 08:59 Last Admin: 10/02/21 09:27 Dose: 1,000 units
[2021-10-02] MEDS: DOCUSATE SODIUM/SENNA 50/8.6MG TAB PO SCH (21:37)
[2021-10-03] MEDS: POLYETHYLENE (MIRALAX) 17 GM PACK PO SCH ×6 (00:37→21:41)
[2021-10-03] MEDS: oxyCODONE HCL IR 5 MG TAB (IMMEDIATE RELEASE) PO PRN ×4 (00:39→21:02)
[2021-10-03] MEDS: dexAMETHasone 6 MG in SYRINGE 0 ML IV SCH (08:48)
[2021-10-03] MEDS: buPROPion SR 100 MG TABCR PO SCH ×2 (08:51→21:03)
[2021-10-03] MEDS: PANTOprazole 40 MG TAB PO SCH (08:51)
[2021-10-03] MEDS: CHOLECALCIFEROL 1,000 UNITS 25 MCG TAB PO SCH (08:52)
[2021-10-03] MEDS: FAMOTIDINE 20 MG TAB PO SCH ×2 (08:52→21:03)
[2021-10-03] MEDS: ESCITALOPRAM OXALATE 10 MG TAB PO SCH (08:52)
[2021-10-03] MEDS: ASPIRIN 81 MG ECTAB PO SCH (08:52)
--- NOTE | 2021-10-03 09:56 | Orthopedic Progress Note ---
Date of Service October 03, 2021 Assessment & Plan (1) Neurogenic claudication due to lumbar spinal stenosis: Plan: This time we will continue physical therapy monitor SALOMON output hopefully discharge home tomorrow. Admission and Anticipated Discharge Date Admission Date: October 01, 2021 Subjective Back pain is controlled leg pain improved Physical Exam Physical Exam: Patient is sitting up at bedside. She is comfortable. Skin strength testing. Results & Data ([facility]) Vital Signs (Past 12 Hours) Vital Signs Temp Pulse Resp BP BP Pulse Ox O2 Del Method 10/03/21 07:13 36.7 C 62 18 131/67 98 Room Air 10/02/21 23:38 36.7 C 65 17 119/78 98 Room Air
--- NOTE | 2021-10-03 16:11 | Hospitalist Progress Note ---
Date of Service October 03, 2021 Assessment & Plan (1) Neurogenic claudication due to lumbar spinal stenosis: Plan: -Dr. Scott patient. -POD #2 for lumbar decompression L3-L4; L4-L5. -EBL: 200mL -Lumbar SALOMON drain intact No evidence of post operative anemia. -PT/OT ordered. -Encourage incentive spirometer -Ortho to manage post-surgery, incision management, and pain management. -Pt has Dilaudid, Tramadol, and Ativan ordered PRN. -Pt does have medicinal marijuana tincture for pain and anxiety through the [facility]. Advised of current policy for use (2) CAD (coronary artery disease): Plan: -chronic, stable. Heart cath in 2019, secondary to failed stress test, done at [facility]; no intervention necessary at that time. -Not on any cardiac meds -Former smoker - Stopped smoking 2010. (3) COPD (chronic obstructive pulmonary disease): Plan: -Encourage ISB use post-op -On 2LNC post operative and able to be weaned off to room air. -chronic, stable. (4) Anxiety and depression: Plan: -Pt takes Lexapro, Ativan, Wellbutrin. Continue while inpt. Plan Pain control Monitor SALOMON drain Ambulate as tolerated DC per ortho Brinda Ash DO [facility] Hospitalist Admission and Anticipated Discharge Date Admission Date: October 01, 2021 Subjective Ms. Peraza is a 56 year old female who presented to the hospital for a scheduled surgery with Dr. Scott for lumbar decompression after failed outpatient conservative treatment for spinal stenosis and lumbar neuroclaudication and spinal fusion of L4-5. She underwent a lumbar decompression of L3-4 and L4-5 She is doing well POD 2 Doing well Pain is controlled She is otherwise doing well and reports pain is well controlled denies any numbness for tingling in her legs Review of Systems Review of Systems: All systems were reviewed and negative except as indicated above. Physical Exam Physical Exam: CONSTITUTIONAL: WNWD, vitals as above, generally well- appearing, NAD EYES: normal conjunctivae, no scleral icterus, ENT: external ear and nose normal, MMM NECK: trachea midline, RESPIRATORY: clear to auscultation bilaterally, no crackles, rales or wheezes, normal respiratory effort CARDIOVASCULAR: regular rate and rhythm, S1 and 2 heard without murmurs, gallops or rubs, no JVD, no peripheral edema CHEST: inspection of chest was normal GASTROINTESTINAL: soft, nontender, ND, no guarding MUSCULOSKELETAL: strength 5/5 throughout, head is normocephalic and atraumatic SKIN: warm and dry, slight flushing to malar area of face. Back incision covered with dressing that is c/d/i NEUROLOGIC: CN 2-12 grossly intact, no sensory deficit, normal cognition, normal speech, no tremor PSYCHIATRIC: alert cooperative and oriented to person, place and time. Results & Data Results & Data ([facility]) Vital Signs (Past 12 Hours) Vital Signs Temp Pulse Resp BP BP Pulse Ox O2 Del Method 10/03/21 14:31 36.7 C 59 L 17 112/71 96 Room Air 10/03/21 07:13 36.7 C 62 18 131/67 98 Room Air Medications Administered Current Inpatient Medications Acetaminophen (Acetaminophen 500 Mg Tab) 1,000 mg PO Q8H PRN PRN Reason: MILD Pain Scale 1,2,3 & Pre PT Stop: 10/31/21 13:52 Al Hydrox/Mg Hydrox/Simethicone (Aluminum/Magnesium Susp 30 Ml Udc) 30 ml PO Q6H PRN PRN Reason: Dyspepsia Stop: 10/31/21 13:52 Aspirin (Aspirin 81 Mg Ectab) 81 mg PO QAM [facility] Stop: 11/01/21 08:59 Last Admin: 10/03/21 08:52 Dose: 81 mg Bisacodyl (Bisacodyl 10 Mg Supp) 10 mg WA DAILY PRN PRN Reason: Constipation Stop: 10/31/21 13:52 Bupropion HCl (Bupropion Sr 100 Mg Tabcr) 100 mg PO BID [facility] Stop: 10/31/21 20:59 Last Admin: 10/03/21 08:51 Dose: 100 mg Diphenhydramine HCl (Diphenhydramine Capsule 25 Mg Cap) 25 mg PO Q6H PRN PRN Reason: Allergic Rhinitis/Insomnia Stop: 10/31/21 13:52 Escitalopram Oxalate (Escitalopram Oxalate 10 Mg Tab) 10 mg PO QAM [facility] Stop: 11/01/21 08:59 Last Admin: 10/03/21 08:52 Dose: 10 mg Famotidine (Famotidine 20 Mg Tab) 20 mg PO BID [facility] Stop: 10/31/21 20:59 Last Admin: 10/03/21 08:52 Dose: 20 mg Hydromorphone HCl (Hydromorphone Inj 0.5 Mg/0.5 Ml Syr) 0.5 mg IV Q3H PRN PRN Reason: MODERATE Pain (Scale 4,5,6) & Pre PT Stop: 10/15/21 13:52 Hydromorphone HCl (Hydromorphone Inj 1 Mg/Ml Syringe) 1 mg IV Q3H PRN PRN Reason: SEVERE Pain (Scale 7,8,9,10) Stop: 10/15/21 13:52 Hydroxyzine HCl (Hydroxyzine Hcl 25 Mg Tab) 25 mg PO Q8H PRN PRN Reason: Anxiety Stop: 10/31/21 13:52 Promethazine HCl 12.5 mg/ (Sodium Chloride) 50.5 mls @ 202 mls/hr IV Q6H PRN PRN Reason: Nausea &/or Vomiting Stop: 10/31/21 13:52 Lorazepam 0.5 mg/ Syringe 0.5 mls @ 2 mls/min IV Q8H PRN PRN Reason: Sedation/Anxiety Stop: 10/31/21 13:52 Dexamethasone 6 mg/ Syringe 1.5 mls @ 1 mls/min IV DAILY AKIKO Stop: 10/04/21 09:02 Last Admin: 10/03/21 08:48 Dose: 1 mls/min Influenza Virus Vaccine Quadrival (Do Not Administer Flu Vaccine) 1 each N/A PRN PRN PRN Reason: Notification Stop: 10/31/21 13:52 Lorazepam (Lorazepam 0.5 Mg Tab) 0.5 mg PO Q8H PRN PRN Reason: Sedation/Anxiety Stop: 10/31/21 13:52 Last Admin: 10/02/21 01:39 Dose: 0.5 mg Magnesium Hydroxide (Magnesium Hydroxide Susp 30 Ml Udc) 30 ml PO Q24H PRN PRN Reason: Constipation Stop: 10/31/21 13:52 Metoclopramide HCl (Metoclopramide Hcl Inj 5 Mg/Ml 2 Ml Vial) 10 mg IV Q6H PRN PRN Reason: Nausea &/or Vomiting Stop: 10/31/21 13:52 Naloxone HCl (Naloxone Hcl 0.4 Mg/1 Ml Vial/Carp) 0.1 mg IV Q5M PRN PRN Reason: Oversedation/Resp depression Stop: 10/31/21 13:52 Ondansetron HCl (Ondansetron Inj 2 Mg/Ml 2 Ml Vial) 4 mg IV Q6H PRN PRN Reason: Nausea &/or Vomiting Stop: 10/31/21 13:52 Ondansetron HCl (Ondansetron 4 Mg Od Tab) 4 mg PO Q6H PRN PRN Reason: Nausea Stop: 10/31/21 13:52 Oxycodone HCl (Oxycodone Hcl Ir 5 Mg Tab (Immediate Release)) 5 - 10 mg PO Q4H PRN PRN Reason: Pain & Pre PT Stop: 10/15/21 13:52 Last Admin: 10/03/21 13:31 Dose: 10 mg Pantoprazole Sodium (Pantoprazole 40 Mg Tab) [facility] [place] Protocol Stop: 11/01/21 08:59 Last Admin: 10/03/21 08:51 Dose: 40 mg Pneumococcal Polyvalent Vaccine (Do Not Administer Pneumococcal Vaccine) 1 each N/A PRN PRN PRN Reason: Notification Stop: 10/31/21 13:52 Polyethylene Glycol (Polyethylene (Miralax) 17 Gm Pack) 17 gm PO Q6 AKIKO Stop: 11/01/21 05:59 Last Admin: 10/03/21 12:35 Dose: 17 gm Senna/Docusate Sodium (Docusate Sodium/Senna 50/8.6mg Tab) 2 tab PO HS AKIKO Stop: 10/31/21 20:59 Last Admin: 10/02/21 21:37 Dose: 2 tab Sodium Biphosphate/Sodium Phosphate (Sod Phosphate/Sod Biphosphate Enema 132 Ml Btl) 132 ml WA ONE PRN PRN Reason: Constipation Stop: 10/31/21 13:52 Tramadol HCl (Tramadol Hcl 50 Mg Tablet) 50 - 100 mg PO Q4H PRN PRN Reason: Moderate-Severe pain & Pre PT Stop: 10/31/21 13:52 Vitamin D (Cholecalciferol 1,000 Units 25 Mcg Tab) 1,000 units PO QAM AKIKO Stop: 11/01/21 08:59 Last Admin: 10/03/21 08:52 Dose: 1,000 units
[2021-10-03] MEDS: DOCUSATE SODIUM/SENNA 50/8.6MG TAB PO SCH (21:02)
[2021-10-04] MEDS: oxyCODONE HCL IR 5 MG TAB (IMMEDIATE RELEASE) PO PRN ×2 (01:48→09:59)
[2021-10-04] MEDS: dexAMETHasone 6 MG in SYRINGE 0 ML IV SCH (08:43)
[2021-10-04] MEDS: PANTOprazole 40 MG TAB PO SCH (08:49)
[2021-10-04] MEDS: CHOLECALCIFEROL 1,000 UNITS 25 MCG TAB PO SCH (08:49)
[2021-10-04] MEDS: ESCITALOPRAM OXALATE 10 MG TAB PO SCH (08:49)
[2021-10-04] MEDS: FAMOTIDINE 20 MG TAB PO SCH (08:50)
[2021-10-04] MEDS: ASPIRIN 81 MG ECTAB PO SCH (08:50)
[2021-10-04] MEDS: buPROPion SR 100 MG TABCR PO SCH (08:50)
[2021-10-04] MEDS: POLYETHYLENE (MIRALAX) 17 GM PACK PO SCH (12:37)
--- NOTE | 2021-10-04 12:47 | Discharge Summary ---
Date of Service October 04, 2021 Admission HPI Per Admitting Provider This is a 56-year-old female presents with chronic persistent back and leg pain. Failing course of nonoperative care she is here for surgical invention. Principal Diagnosis Lumbar spinal stenosis with neurogenic claudication Discharge Data Allergies Allergy/AdvReac Type Severity Reaction Status Date / Time azithromycin Allergy Difficulty Verified 10/01/21 08:26 [From Zithromax Z-Memo] Breathing latex Allergy Rash Verified 10/01/21 08:26 amoxicillin AdvReac Leg Verified 10/01/21 08:26 swelling ibuprofen AdvReac Headaches Verified 10/01/21 08:26 Consultations 10/01/21 13:53 Consult Hospitalist Routine Procedures Performed Operation Date: 10/01/21 09:35 Actual Procedures p L4-L5 Decompression and Fusion, Spinal Cord Monitoring(Not Applicable) - Omega Scott DO Ordered Studies 10/01/21 09:35 FL lumbar spine 2-3V Routine Hospital Course (1) Neurogenic claudication due to lumbar spinal stenosis: Patient underwent lumbar decompression fusion tolerated this well was taken to the orthopedic floor postoperative. Postop day 1 she was up and ambulating progressed to postop day 2 on postop day 3 pain was well controlled SALOMON drain decreasing appropriately. Excellent strength testing. Subsequent discharge home. Discharge orders instructions from the chart for further review. Total Time Total Time Spent Total Time Spent (In Minutes): 20 minutes Discharge Plan Discharge Items Patient Disposition: Home - Self-Care Reason For Visit: Spinal Stenosis, Lumbar Region with Neurogenic Cla Discharge Diagnosis: Lumbar spinal stenosis with neurogenic claudication Activity: As commented below Non-emergency contact: Primary Care Provider Call non-emergency contact if: you have any medication questions Follow-up/Referrals: Rubén Rain DO [Primary Care Provider] - Diet: Regular Addtl Attending Provider Instructions: ACTIVITY RECOMMENDATIONS: SELF CARE INSTRUCTIONS AFTER THORACIC/LUMBAR FUSIONS 1. You may walk to your tolerance. It is good exercise for your legs and back. Expect some back and intermittent leg aches and pains. 2. You may perform "counter-top" level activities (make a sandwich, regis with a project, etc.). 3. No bending or lifting of more than 10 pounds or back twisting of any nature (roll like a log when turning in bed). 4. You may ride in a car for 20-30 minutes at a time. No driving until after your first visit with your doctor. 5. Frequent changes of position and restricting sitting to 30 minutes at a time will help limit the amount of back spasms and stiffness you may experience. 6. You may discontinue the use of ambulatory aids (cane, crutches, etc.) once your strength and confidence allow. 7. You may communications instructor the shower and let water strike your incision when you arrive home at least once daily. Do not take a tub bath, sit in a hot tub or go into a swimming pool until after your first recheck in the office. SPECIAL CARE INSTRUCTIONS: VERY IMPORTANT TO READ AND REVIEW A. Your surgical incision has been closed with a cosmetic suture under the skin that will dissolve in about 6 weeks. In 14 days, you can use a pair of clean scissors and cut the suture that is left outside of the skin at the ends of your incision. 1. The small skin tapes can be removed 7 days after surgery if they have not fallen off by that point. 2. You may keep the wound open to air as much as possible to promote healing after post-op day number 5 unless told otherwise by your doctor. 3. If you think the wound looks like it is becoming infected (redness or worsening drainage) and/or you are experiencing fever, chill or worsening back pain and muscle spasms, contact the office so that we may evaluate you as soon as possible. B. Complications are uncommon, but please contact us if you have any signs or symptoms of: 1. wound infection (fever higher than 102.5 degrees F, redness, separation of wound, drainage, or increasing pain from the incision) 2. blood clots in legs (pain, swelling, redness and warmth in legs) 3. urinary tract infection (fever higher than 102.5 degrees F, burning upon urination or increased frequency of urination) 4. nerve problems (inability to walk on your toes or heels, numbness, loss of bowel or bladder control) 5. any other symptoms that concern you C. Please call the office at if you have any concerns or questions about your operation or recovery. D. No smoking! Smoking drastically decreases the chance of a solid fusion. E. Do not take any anti-inflammatory medications (Indocin, Advil, Motrin, Aspirin, Naprosyn, etc.) as these may inhibit the chance of a solid fusion. Tylenol is okay to take for pain. MANAGING PAIN AFTER SPINAL SURGERY 1. Narcotic medication is intended for short-term use and will be provided for surgical pain. Surgical pain usually lasts for a period of 4-6 weeks. Narcotic medication includes Percocet, Vicodin, Darvocet, Tylenol #3 or Lortab. 2. Longer-term pain is more appropriately treated with non-narcotic medication such as Tylenol ES. 3. Muscle spasm is not appropriately treated with narcotics. Muscle relaxers such as Soma, Flexeril or Skelaxin can be used along with Tylenol ES. 4. Remember that we all live with some "aches and pains". This is not unusual or uncommon after an injury or as we get older. a. Back pain is expected and may include muscle spasms for 4 to 6 weeks after surgery. The pain should gradually improve. If the pain worsens for no apparent reason, please contact the office. b. Intermittent leg pain may also be experienced and should not be concerned about unless it worsens for no apparent reason. If so, please contact the office. 5. We will provide appropriate medication within the normal guidelines of their prescribed use. We will also be very cautious and aware of potential abuse and extended duration of patients' medication needs. a. Pain medications are for your comfort and to assist with sleep and rest so that the tissue can heal. They are not provided in order to return to normal activity and should not be used through the day. To do so or worsening pain at night can result from ongoing tissue damage and development of tolerance to the prescribed medicine. 6. Please allow 2-3 days to process refills. Prescriptions will not be mailed but must be picked up at the office. FOLLOW UP VISIT: Keep your scheduled follow-up appointment. Any questions, please call the office at . Pending Studies at Discharge: No Stand-Alone Forms: My [employer], Smoking Cessation Medications and DC Order Prescriptions: New tramadol 50 mg tablet 50 mg PO Q6H PRN (Reason: pain, moderate) Qty: 30 0RF oxycodone 5 mg tablet 5 mg PO Q6H PRN (Reason: pain, severe) Qty: 30 0RF Continued bupropion HCl [Wellbutrin SR] 100 mg Tablet Sustained-Release 12 Hr 100 mg PO BID famotidine 20 mg Tablet 20 mg PO BID esomeprazole magnesium [Nexium] 40 mg Capsule,Delayed Release(Dr/Ec) 40 mg PO QAM aspirin 81 mg Tablet 81 mg PO QAM lorazepam [Ativan] 1 mg Tablet 1 mg PO TID PRN (Reason: Anxiety) escitalopram oxalate [Lexapro] 10 mg Tablet 10 mg PO QAM ascorbic acid (vitamin C) [Vitamin C] 1,000 mg Tablet 2 g PO QAM cholecalciferol (vitamin D3) [Vitamin D3] 25 mcg (1,000 unit) Capsule 50 mcg PO QAM Discontinued meloxicam 15 mg Tablet 15 mg PO QAM Discharge Orders: Discharge Order (Routine); Ordered 10/04/21 Ordered By: Omega Scott Admission Data Admit Date/Time: 10/01/21 12:16 Attending Provider: Omega Scott Admit Provider: Omega Scott Primary Care Provider: Rubén Rain Other Providers: Brinda Ash
== END 2021-10-04 13:59 | disposition home or self-care (01) | DRG 455 ==
LOC: ASU 07:54 → 3N 12:16